=== PATIENT | female | born 1980 | race American Indian/Alaskan Native ===

== ENCOUNTER 2016-06-22 16:06 | Inpatient (IN) | payer OTHER ==
[2016-06-22 17:11] LABS: CHLORIDE 98 mmol/L (98-107); POTASSIUM 3.7 mmol/L (3.6-5.2); SODIUM 134 mmol/L (132-148)
[2016-06-22 17:12] LABS: BASO % 1.3 % (0.0-2.0); EOS % 0.6 % (0.0-4.0); HEMATOCRIT 37.9 % (34.0-47.0); LYMPH % 25.8 % (20.0-40.0); MEAN CELL VOLUME 101.5 fL (81.0-99.0); MEAN CORPUSCULAR HGB CONC 33.5 g/dL (33.0-37.0); MEAN PLATELET VOLUME 9.4 fL (7.2-11.7); MONO # 0.3 K/uL (0.0-0.8); MONO % 9.2 % (0.0-10.0); NRBC % 0.1 % (0.0-2.0); WHITE BLOOD COUNT 3.7 K/uL (4.8-10.8)
[2016-06-22 17:13] LABS: GFR AFRICAN-AMERICAN > 60
[2016-06-22 17:14] LABS: ALB/GLOB RATIO 1.3 (1.0-2.1); ALKALINE PHOSPHATASE 91 U/L (38-126); ALT/SGPT 42 U/L (9-52); AST/SGOT 103 U/L (14-36); BILIRUBIN,TOTAL 0.9 mg/dL (0.2-1.3); BLOOD UREA NITROGEN 7 mg/dL (7-17); CARBON DIOXIDE 25 mmol/L (22-30); GLUCOSE,RANDOM 89 mg/dL (65-105); TOTAL PROTEIN 7.9 g/dL (6.3-8.3)
[2016-06-22 17:15] LABS: ALCOHOL SERUM < 10 mg/dl (0-10)
[2016-06-22 18:08] LABS: RBC URINE 1 /hpf (0-3); URINE BACTERIA RARE (<OCC); URINE BILIRUBIN NEGATIVE (NEGATIVE); URINE BLOOD 2+ (NEGATIVE); URINE COLOR Yellow (YELLOW); URINE GLUCOSE (UA) NORMAL (Normal); URINE KETONE NEGATIVE (NEGATIVE); URINE LEUKOCYTE ESTERASE NEG Leu/uL (Negative); URINE PROTEIN NEGATIVE (NEGATIVE); URINE UROBILINOGEN NORMAL mg/dL (0.2-1.0); WBC URINE 1 /hpf (0-5)
--- NOTE | 2016-06-22 19:11 | C.PDOC ---
History Of Present Illness Pt is here requesting detox from alcohol. Time Seen by Provider: 06/22/16 16:42 Chief Complaint (Nursing): Substance Abuse History Per: Patient Onset/Duration Of Symptoms: Days Current Symptoms Are (Timing): Still Present Suicide/Self Injury Attempted (Context): None Modifying Factor(s): Alcohol Severity: Moderate Associated Symptoms: denies: Suicidal Thoughts, Suicidal Plan Additional History Per: Prior Records Past Medical History Reviewed: Historical Data, Nursing Documentation, Vital Signs Vital Signs: Last Vital Signs Temp 98.5 F 06/22/16 16:20 Pulse 81 06/22/16 18:46 Resp 16 06/22/16 18:26 BP 146/80 06/22/16 18:26 Pulse Ox 96 06/22/16 16:20 - Medical History PMH: Asthma Family History: States: Unknown Family Hx - Social History Hx Alcohol Use: Yes Hx Substance Use: No - Immunization History Hx Influenza Vaccination: No Review Of Systems Except As Marked, All Systems Reviewed And Found Negative. Constitutional: Negative for: Fever, Weakness Cardiovascular: Negative for: Chest Pain Respiratory: Negative for: Shortness of Breath Gastrointestinal: Negative for: Vomiting, Abdominal Pain Musculoskeletal: Negative for: Neck Pain Skin: Negative for: Rash Neurological: Negative for: Weakness, Numbness, Seizures Psych: Negative for: Psychosis Physical Exam - Physical Exam Appears: Non-toxic, No Acute Distress Skin: Normal Color, Warm, Dry, No Rash Head: Atraumatic, Normacephalic Eye(s): bilateral: PERRL, EOMI Neck: Normal ROM, Supple Cardiovascular: Rhythm Regular Respiratory: Normal Breath Sounds, No Accessory Muscle Use Gastrointestinal/Abdominal: Soft, No Tenderness Back: No CVA Tenderness Extremity: Normal ROM Neurological/Psych: Oriented x3, Normal Motor, Normal Sensation ED Course And Treatment - Laboratory Results Result Diagrams: 06/22/16 16:59 06/22/16 16:59 Lab Interpretation: No Acute Changes Urine POC: Negative ECG: Interpreted By Me, Viewed By Me ECG Rhythm: Sinus Rhythm ECG Interpretation: No Acute Changes Rate From EC O2 Sat by Pulse Oximetry: 96 Pulse Ox Interpretation: Normal Progress Note: Pt is medically stable for detox admission. Disposition Counseled Patient/Family Regarding: Studies Performed, Diagnosis - Disposition Disposition: HOSPITALIZED Disposition Time: 19:00 Condition: STABLE - Clinical Impression Clinical Impression: Alcohol use disorder, severe, dependence Decision To Admit - Pt Status Changed To: Hospital Disposition Of: Inpatient - Admit Certification Admit to Inpatient:: After my assessment, the patient will require hospitalization for at least two midnights. This is because of the severity of symptoms shown, intensity of services needed, and/or the medical risk in this patient being treated as an outpatient. - InPatient: Physician Admission Certification: I certify that this patient requires 2 or more midnights of care for the following reason:: Detox. - . Bed Request Type: Detox Admitting Physician: Tonie Rowley Patient Diagnosis: Alcohol use disorder, severe, dependence
[2016-06-22] MEDS ORDERED: Albuterol HFA 90 mcg/actuation (8 g) INH PRN (19:48)
[2016-06-23] MEDS: Multiple Vitamins Tab PO SCH (09:11)
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
--- NOTE | 2016-06-23 18:26 | CARD ---
APPROVED REPORT EKG Measurement Heart [id number] <Conclusion> Normal sinus rhythm Normal ECG
[2016-06-23] MEDS ORDERED: Aluminum Hydroxide/Magnesium Hydroxide Susp (30 mL) PO PRN (20:30)
[2016-06-24] MEDS: Multiple Vitamins Tab PO SCH (09:05)
--- NOTE | 2016-06-24 15:18 | PCM.PYCHPN ---
Psychiatric Progress Note - Psychiatric Progress Note Patient seen today, length of contact: 16 min Patient Chief Complaint: "I feel the same" Problems Identified/Issues Discussed: The pt is seen, chart reviewed, case discussed with staff. The pt is compliant with medication and reports no side effects. The pt reports anxiety, that detox is going well, sleep and appetite are well. Symptoms include blurry vision, abdominal pain, body aches, shaking, sweating, chills. Patient reports pruritic rash on her legs bilaterally. After care discussed, support and psychoeducation given. MD and CBT used briefly. Plans to go to [facility] at [facility] Medication Change: Yes Medical Record Reviewed: Yes Mental Status Examination - Cognitive Function Orientation: Person, Place, Situation, Time Memory: Intact Attention: WNL Concentration: WNL Association: WNL Fund of Knowledge: Poor - Mood Mood: Anxious - Affect Affect: Constricted, Depressed - Speech Speech: Appropriate - Formal Thought Process Formal Thought Process: No Impairment - Suicidal Ideation Suicidal Ideation: No - Homicidal Ideation Homicidal Ideation: No Goal/Treatment Plan - Goal/Treatment Plan Need for Continued Stay: Discharge may exacerbated symptoms, Severe functional impairment Progress Toward Problem(s) and Goals/Treatment Plan: Alcohol Use Disorder -CBT -Psychoeducation -Supportive therapy, individual therapy -Use MD for abstinence Alcohol withdrawal uncomplicated -CBT -Psychoeducation -Supportive therapy, individual therapy -Librium detox Major Depressive Disorder - severe -CBT -Zoloft -PsychoEducation -Supportive therapy, group therapy, individual therapy PTSD - Indiv tx with CBT Tobacco Use Disorder - MD for abstinence
[2016-06-24 17:08] VITALS: RESP 18
[2016-06-25] MEDS ORDERED: Pneumococcal 23-Valent Vaccine IM ONE (10:00)
--- NOTE | 2016-06-25 22:30 | PCM.PYCHPN ---
Psychiatric Progress Note - Psychiatric Progress Note Patient seen today, length of contact: 16 min Patient Chief Complaint: "Tired" Problems Identified/Issues Discussed: The pt is seen, chart reviewed and case discussed. The pt is improving with medications and no breakthrough sxs reported or noted. No SEs from meds Support and psychoed given OR and CBt used After care discussed Medication Change: Yes Medical Record Reviewed: Yes Mental Status Examination - Cognitive Function Orientation: Person, Place, Situation, Time Memory: Intact Attention: WNL Concentration: WNL Association: WNL Fund of Knowledge: Poor - Mood Mood: Anxious - Affect Affect: Constricted, Depressed - Speech Speech: Appropriate - Formal Thought Process Formal Thought Process: No Impairment - Suicidal Ideation Suicidal Ideation: No - Homicidal Ideation Homicidal Ideation: No Goal/Treatment Plan - Goal/Treatment Plan Need for Continued Stay: Discharge may exacerbated symptoms, Severe functional impairment Progress Toward Problem(s) and Goals/Treatment Plan: Alcohol Use Disorder -CBT -Psychoeducation -Supportive therapy, individual therapy -Use OR for abstinence Alcohol withdrawal uncomplicated -CBT -Psychoeducation -Supportive therapy, individual therapy -Librium detox Major Depressive Disorder - severe -CBT -Zoloft -PsychoEducation -Supportive therapy, group therapy, individual therapy PTSD - Indiv tx with CBT Tobacco Use Disorder - OR for abstinence
[2016-06-26 06:22] VITALS: O2SAT 99
[2016-06-26] MEDS: Diphenhydramine 1% Cream (1 oz) TOP SCH ×2 (08:05→09:11)
--- NOTE | 2016-06-26 08:54 | PCM.PYCHDC ---
Mental Status Examination - Mental Status Examination Orientation: Person, Place, Situation, Time Memory: Impaired Mood: Anxious Affect: Constricted Speech: Appropriate Attention: WNL Concentration: Poor Association: WNL Fund of Knowledge: Poor Formal Thought Process: No Impairment Suicidal Ideation: No Current Homicidal Ideation?: No Discharge Summary - Discharge Note Reason for Hospitalization: Alcohol detox Psychiatric History (includes Medical, Family, Personal Hx): PTSD Consultations:: List each consultation separately and include: 1. Reason for request. 2. Findings. 3. Follow-up Summary of Hospital Course include:: 1. Description of specific treatment plan utilized for patients during their course of treatmen. 2. Summarize the time- course for resolution of acute symptoms and/or regressed behaviors. 3. Describe issues identified and worked on during hospitalization. 4. Describe medication utilized. 5. Describe medical problems identified and treated. 6. Reassessment of suicide risk Summary of Hospital Course: The pt is seen, chart reviewed, case discussed with staff. On admission: Patient is a 35 yo AA female. 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 Has 4 children ages 15, 11, 10, 3 who are being taken care of by her father. Legal issues include DYFS. Patient reports that she has been using alcohol since she was 17 years old, has been drinking heavily for the past 3 years, last had a drink 2 days ago, on average drinks 1.5 pints of vodka and 4 or more beers per day. Smokes half a pack of cigarettes per day and refuses a patch. Denies cocaine, heroin, mushrooms, marijuana, prescription drugs. Longest sobriety includes all 4 pregnancies at 9 months each. Attended rehab twice at [facility] in 2015 and [facility] in 2016. Attended rehab at [facility] in 2016 for 45 days. Patient says that she relapsed for many reasons. Patient is currently experiencing withdrawal symptoms including headaches, lower back pain, congestion and says that the Librium is helping. Reports an pruritic rash that has been lasting for 2 weeks and is sporadic over her body. Denies nausea, vomiting, shaking, sweating. Reports feeling antisocial, anxious , agitated, feeling people are following her and reading her mind and thoughts. Denies suicidal and homicidal ideation, auditory and visual hallucinations, and feeling like people are out to get her. Patient has difficulty sleeping, only slept for 45 minutes last night, and has a good appetite. Plans after discharge includes a 3 month rehab stay at [facility]. Hospital course: The pt was admitted and started on treatment with psychotherapy, support, psychoeducation and medications. AR and CBT used. The pt attended groups and activities, as well as milieu therapy. All the risks and benefits of medications are discussed and the patient understood and agreed. After care discussed with the patient. She had no ID or insurance and [facility] was asked to guide the pt for an outpt program that they would fund. - Final Diagnosis (DSM 5) Condition upon Discharge: STABLE DSM 5: Alcohol withdrawal, uncomplicated Alcohol Use Disorder - severe Anxiety d/o -unspecified r/o PTSD PTSD Tobacco Use Disorder Disposition: HOME/ ROUTINE Follow-up Treatment Plan: Continue below medications after discharge. Follow after care plan as discussed. [facility] or some [facility]-funded program Use relapse prevention skills Return to ER or call 911 if suicidal, homicidal or symptoms relapse. Stay away from stress, alcohol and drugs. Prescriptions/Medication Reconciliation: Albuterol HFA [Ventolin HFA 90 mcg/actuation (8 g)] 1 puff INH RQ4 PRN #1 inhaler PRN Reason: Shortness Of Breath Aspirin [Aspirin Chewable] 81 mg PO DAILY #30 Sertraline [Zoloft] 50 mg PO DAILY #30 tab traZODone [Desyrel] 50 mg PO HS PRN #30 tab PRN Reason: Insomnia - Smoking Cessation Smoking Cessation Medication prescribed: No - Antipsychotic Medications Pt discharged on 2 or more routine antipsychotic medications: No
[2016-06-26] MEDS: Multiple Vitamins Tab PO SCH (09:10)
[2016-06-26 09:43] VITALS: BP 109/72; PULSE 80; TEMP 97.8
== END 2016-06-26 10:50 | disposition home or self-care (01) | DRG 751 ==
LOC: C.ER 16:06 → C.7D 19:15
PROVIDERS: ADMIT Psychiatry & Neurology Psychiatry; ATTEND Psychiatry & Neurology Psychiatry
PROC: HZ2ZZZZ Detoxification Services for Substance Abuse Treatment (ICD-10-PCS; principal; 2016-06-22)
PROC: HZ32ZZZ Individual Counseling for Substance Abuse Treatment, Cognitive-Behavioral (ICD-10-PCS; 2016-06-22)
PROC: HZ36ZZZ Individual Counseling for Substance Abuse Treatment, Psychoeducation (ICD-10-PCS; 2016-06-22)
PROC: GZHZZZZ Group Psychotherapy (ICD-10-PCS; 2016-06-22)
DX: F10.230 Alcohol dependence with withdrawal, uncomplicated (principal); F32.9 Major depressive disorder, single episode, unspecified; F17.210 Nicotine dependence, cigarettes, uncomplicated; J45.909 Unspecified asthma, uncomplicated; G47.9 Sleep disorder, unspecified; F43.10 Post-traumatic stress disorder, unspecified

== ENCOUNTER 2018-01-06 17:22 | Emergency (ER) | payer MEDICAID ==
[2018-01-06 17:59] VITALS: TEMP 98.1
--- NOTE | 2018-01-06 18:47 | C.PDOC ---
History Of Present Illness 37 year old female, whose past medical history includes hypertension, alcoholism, asthma, bipolar disorder, and PTSD, presents to the ED requesting alcohol detox. Patient states she drinks every day, and her last drink was 30 minutes prior to ED arrival. She reports undergoing detox one year ago. Patient admits to smoking, denies drug use. She denies chest pain, shortness of breath, abdominal pain, nausea, vomiting. Time Seen by Provider: 01/06/18 17:42 Chief Complaint (Nursing): Substance Abuse History Per: Patient History/Exam Limitations: no limitations Onset/Duration Of Symptoms: Hrs Current Symptoms Are (Timing): Still Present Suicide/Self Injury Attempted (Context): None Modifying Factor(s): Alcohol Associated Symptoms: denies: Suicidal Thoughts, Suicidal Plan Involuntary Hold By: None Recent travel outside of the [place]: No Additional History Per: Patient Past Medical History Reviewed: Historical Data, Nursing Documentation, Vital Signs Vital Signs: Last Vital Signs Temp 98.1 F 01/06/18 17:45 Pulse 103 H 01/06/18 17:45 Resp 18 01/06/18 17:45 BP 115/76 01/06/18 17:45 Pulse Ox 99 01/06/18 17:45 - Medical History PMH: Anxiety, Asthma, Bipolar Disorder, Depression, Post Traumatic Stress Disorder Denies: Diabetes, Hepatitis, HIV, HTN, Chronic Kidney Disease, Seizures, Sexually Transmitted Disease Surgical History: No Surg Hx - [facility] Procedures DETOXIFICATION SERVICES FOR SUBSTANCE ABUSE TREATMENT (06/22/16) GROUP PSYCHOTHERAPY (06/22/16) INDIV CARD SERVICES SPECIALIST FOR SUBSTANCE ABUSE TREATMENT, PSYCHOEDUCATION (06/22/16) INDIV CARD SERVICES SPECIALIST FOR SUBSTANCE ABUSE, COGNITIVE BEHAVIORAL (06/22/16) Family History: States: Unknown Family Hx - Social History Hx Alcohol Use: Yes Hx Substance Use: No - Immunization History Hx Tetanus Toxoid Vaccination: No Hx Influenza Vaccination: No Hx Pneumococcal Vaccination: No Review Of Systems Cardiovascular: Negative for: Chest Pain Respiratory: Negative for: Shortness of Breath Gastrointestinal: Negative for: Nausea, Vomiting Psych: Positive for: Other (alcohol detox ). Negative for: Suicidal ideation Physical Exam - Physical Exam Appears: Non-toxic, No Acute Distress Skin: Normal Color, Warm, Dry Head: Atraumatic, Normacephalic Eye(s): bilateral: Normal Inspection Oral Mucosa: Moist, Other (faint alcohol odor on breath ) Neck: Supple Chest: Symmetrical, No Deformity, No Tenderness Cardiovascular: Rhythm Regular Respiratory: Normal Breath Sounds, No Accessory Muscle Use Extremity: Normal ROM Neurological/Psych: Oriented x3, Normal Speech, Normal Cognition ED Course And Treatment - Laboratory Results Result Diagrams: 01/06/18 18:50 01/06/18 18:50 O2 Sat by Pulse Oximetry: 99 (on RA) Pulse Ox Interpretation: Normal Medical Decision Making Medical Decision Making: Progress: Bloodwork and urinalysis ordered and reviewed. Patient notified that there are no female detox beds available at this time. Will give patient a referral. Patient is clinically sober, informed there are no bed available at this time and will be D/C. Disposition Counseled Patient/Family Regarding: Studies Performed, Diagnosis, Need For Followup - Disposition Referrals: [facility] [Outside] [facility] [Outside] Disposition: HOME/ ROUTINE Disposition Time: 00:12 Condition: STABLE Additional Instructions: [place] [place], thank you for letting us take care of you today. Your provider was Jasmyn Cardnoa MD and you were treated for DETOX. The emergency medical care you received today was directed at your acute symptoms. If you were prescribed any medication, please fill it and take as directed. It may take several days for your symptoms to resolve. Return to the Emergency Department if your symptoms worsen, do not improve, or if you have any other problems. Please contact your doctor or call one of the physicians/clinics you have been referred to that are listed on the Patient Visit Information form that is included in your discharge packet. Bring any paperwork you were given at discharge with you along with any medications you are taking to your follow up visit. Our treatment cannot replace ongoing medical care by a primary care provider outside of the emergency department. Thank you for allowing the [facility] team to be part of your care today. Instructions: Alcohol Abuse and Alcoholism (DC) Forms: [facility] (Guinean), General Discharge Instructions - POA Present On Arrival: None - Clinical Impression Clinical Impression: Alcohol abuse, Alcohol intoxication, Elevated liver enzymes - Scribe Statement The provider has reviewed the documentation as recorded by the Scribe (eMgan Acosta) Provider Attestation: All medical record entries made by the Scribe were at my direction and personally dictated by me. I have reviewed the chart and agree that the record accurately reflects my personal performance of the history, physical exam, medical decision making, and the department course for this patient. I have also personally directed, reviewed, and agree with the discharge instructions and disposition.
[2018-01-06 18:51] LABS: HCG,QUALITATIVE URINE NEGATIVE (NEGATIVE)
[2018-01-06 18:52] LABS: SQUAMOUS EPITHIAL < 1 /hpf (0-5); URINE BILIRUBIN NEGATIVE (NEGATIVE); URINE CLARITY Clear (Clear); URINE COLOR Straw (YELLOW); URINE GLUCOSE (UA) NORMAL (Normal); URINE LEUKOCYTE ESTERASE NEG Leu/uL (Negative); URINE PROTEIN NEGATIVE (NEGATIVE); URINE UROBILINOGEN NORMAL mg/dL (0.2-1.0)
[2018-01-06 18:53] LABS: URINE BLOOD 1+ (NEGATIVE)
[2018-01-06 19:00] LABS: BASO # 0.1 K/uL (0.0-0.2); BASO % 3.1 % (0.0-2.0); HEMOGLOBIN 12.7 g/dL (11.0-16.0); LYMPH # 1.4 K/uL (1.0-4.3); LYMPH % 45.1 % (20.0-40.0); MEAN CORPUSCULAR HEMOGLOBIN 31.9 pg (27.0-31.0); MEAN CORPUSCULAR HGB CONC 33.2 g/dL (33.0-37.0); MONO # 0.4 K/uL (0.0-0.8); MONO % 13.5 % (0.0-10.0); NEUT # 1.2 K/uL (1.8-7.0); NEUT % 37.3 % (50.0-75.0); PLATELET COUNT 151 K/uL (130-400); RBC 3.97 Mil/uL (3.80-5.20); RED CELL DISTRIBUTION WIDTH 15.7 % (11.5-14.5); WHITE BLOOD COUNT 3.2 K/uL (4.8-10.8)
[2018-01-06 19:01] LABS: BARBITURATES, UR NEGATIVE (NEGATIVE); BENZODIAZEPINES, UR NEGATIVE (NEGATIVE); OPIATES, UR NEGATIVE (NEGATIVE); PHENCYCLIDINE, UR NEGATIVE (NEGATIVE)
[2018-01-06 19:06] LABS: MEAN CELL VOLUME 96.1 fL (81.0-99.0)
[2018-01-06 19:09] LABS: ALB/GLOB RATIO 1.1 (1.0-2.1); ALBUMIN 4.4 g/dL (3.5-5.0); ALT/SGPT 60 U/L (9-52); AST/SGOT 200 U/L (14-36); BLOOD UREA NITROGEN 7 mg/dL (7-17); GFR NON-AFRICAN AMERICAN > 60
[2018-01-06 19:31] LABS: BANDS 1 % (0-2); BASOPHIL 2 % (0-2); NEUTROPHIL 40 % (50-75); TOTAL CELLS COUNTED 100
[2018-01-06 19:32] LABS: LYMPHOCYTE 47 % (20-40); MONOCYTE 10 % (0-10); PLATELET ESTIMATE NORMAL (NORMAL)
[2018-01-06 23:45] VITALS: BP 118/71; PULSE 69; RESP 20
[2018-01-07 00:14] VITALS: O2SAT 99
== END 2018-01-07 00:28 | disposition home or self-care (01) ==
LOC: C.ER 17:22
DX: F10.129 Alcohol abuse with intoxication, unspecified (principal); Y90.8 Blood alcohol level of 240 mg/100 ml or more; R74.8 Abnormal levels of other serum enzymes